=== PATIENT | female | born 1985 | race Two or more races ===

== ENCOUNTER 2017-07-01 16:47 | Emergency (ER) | payer OTHER ==
[~2017-07-01] VITALS: Ht 162.6 cm; Wt 77.1 kg
[2017-07-01 16:44] VITALS: BP 93/52
--- NOTE | 2017-07-01 17:07 | Emergency Room Report ---
History of Present Illness General Chief Complaint: Alcohol Intoxication Source: Patient Present Illness HPI 32 y/o female BIB ambulance c/o ETOH intoxication. States that she was drinking beer with her friend and got too drunk and passed out. Patient states she feels fine now that she is sober and would like to go home. States she smoked PCP 1 week ago and that she lives in a [facility]ci. Patient has no physical complaints. Denies any current n/v/f/c/d, abd pain, back pain, neck pain, photophobia, phonophobia, CP, SOB or headache. Allergies: Coded Allergies: No Known Allergies (Unverified , 07/01/17) Patient History Limited by: medical condition Last Menstrual Period: last month Now: No Reviewed Nursing Documentation: PMH: Agreed, PSxH: Agreed Nursing Documentation-PMH Past Medical History: No History, Except For Review of Systems All Other Systems: negative except mentioned in HPI Physical Exam Vital Signs Date Time Temp Pulse Resp B/P (MAP) Pulse Ox O2 Delivery O2 Flow Rate FiO2 07/01/17 16:37 97.7 94 18 93/52 98 Room Air Sp02 EP Interpretation: reviewed, normal General Appearance: no apparent distress, alert, GCS 15, non-toxic, other - appears intoxicated and smells of alcohol Head: normocephalic, atraumatic Eyes: bilateral eye normal inspection, bilateral eye PERRL ENT: hearing grossly normal, normal pharynx, no angioedema, normal voice Neck: full range of motion, supple/symm/no masses Respiratory: chest non-tender, lungs clear, normal breath sounds, speaking full sentences Cardiovascular #1: regular rate, rhythm, no edema Gastrointestinal: normal bowel sounds, non tender, soft, non-distended, no guarding, no rebound Neurologic: other - intoxicated Skin: normal color, no rash, warm/dry, well hydrated Medical Decision Making PA Attestation Dr. Peng my supervising physician with whom patient management has been discussed with. Diagnostic Impression: Primary Impression: Acute alcoholic intoxication Qualified Codes: F10.929 - Alcohol use, unspecified with intoxication, unspecified ER Course Pt. presents to the ED c/o intoxication Ddx considered but are not limited to illicit drug use, drug over dose, seizure , ICH, CVA, ETOH intoxication, cerebral tumor, hematic coma Vital signs: are WNL, pt. is afebrile H&PE are most consistent with ETOH intoxication ORDERS / ED INTERVENTIONS: My Orders - TIP FUNES Procedure Category Date Status Time Vital Signs CARE 07/01/17 Transmitted 16:49 Iv Access / Saline CARE 07/01/17 Transmitted Lock 16:49 Cbc W/ Differential LAB 07/01/17 Complete 16:49 Ns 1000ml (Sodium PHA 07/01/17 Complete Chloride 1000ml Bag) 16:49 Saline 10ml Flush PHA 07/01/17 Complete (Saline 10ml Flush) 17:00 Alcohol Blood/Serum LAB 07/01/17 Complete 16:49 CMP LAB 07/01/17 Complete 16:49 Vitamin B1 Level LAB 07/01/17 In Process 16:49 Drug Screen Urine LAB 07/01/17 Complete 16:56 Ns 1000ml (Sodium PHA 07/01/17 Complete Chloride 1000ml Bag) 20:00 DISCHARGE: Patient woke up stating she felt fine and has no physical complaints. Patient is asking for a sandwich and orange juice and wants to go home so she can make sure she gets into the care home before they close. At this time pt. is stable for d/c to home. Will provide printed patient care instructions, and any necessary prescriptions. Care plan and follow up instructions have been discussed with the patient prior to discharge. Laboratory Tests Test 07/01/17 17:15 White Blood Count 9.0 K/UL (4.8-10.8) Red Blood Count 3.81 M/UL (4.20-5.40) L Hemoglobin 11.5 G/DL (12.0-16.0) L Hematocrit 35.6 % (37.0-47.0) L Mean Corpuscular Volume 94 FL (80-99) Mean Corpuscular Hemoglobin 30.2 PG (27.0-31.0) Mean Corpuscular Hemoglobin Concent 32.3 G/DL (32.0-36.0) Red Cell Distribution Width 15.4 % (11.6-14.8) H Platelet Count 335 K/UL (150-450) Mean Platelet Volume 5.2 FL (6.5-10.1) L Neutrophils (%) (Auto) 64.3 % (45.0-75.0) Lymphocytes (%) (Auto) 25.4 % (20.0-45.0) Monocytes (%) (Auto) 8.5 % (1.0-10.0) Eosinophils (%) (Auto) 1.3 % (0.0-3.0) Basophils (%) (Auto) 0.5 % (0.0-2.0) Sodium Level 143 mEQ/L (135-145) Potassium Level 3.4 mEQ/L (3.4-4.9) Chloride Level 105 mEQ/L (98-107) Carbon Dioxide Level 24 mEQ/L (20-30) Anion Gap 14 (5-15) Blood Urea Nitrogen 5 mg/dL (7-23) L Creatinine 0.8 mg/dL (0.5-0.9) Estimate Glomerular Filtration Rate > 60 mL/min (>60) Glucose Level 95 mg/dL (74-106) Calcium Level 8.0 mg/dL (8.6-10.2) L Total Bilirubin < 0.2 mg/dL (0.0-1.2) Aspartate Amino Transferase (AST) 16 U/L (5-40) Alanine Aminotransferase (ALT) 11 U/L (3-33) Alkaline Phosphatase 102 U/L (35-104) Total Protein 6.9 g/dL (6.6-8.7) Albumin 4.1 g/dL (3.5-5.2) Globulin 2.8 g/dL Albumin/Globulin Ratio 1.4 (1.0-2.7) Vitamin B1 Level Pending Urine Opiates Screen Negative (NEGATIVE) Urine Barbiturates Screen Negative (NEGATIVE) Phencyclidine (PCP) Screen Positive (NEGATIVE) H Urine Amphetamines Screen Negative (NEGATIVE) Urine Benzodiazepines Screen Negative (NEGATIVE) Urine Cocaine Screen Negative (NEGATIVE) Urine Marijuana (THC) Screen Negative (NEGATIVE) Serum Alcohol 346 mg/dL Last Vital Signs Date Time Temp Pulse Resp B/P (MAP) Pulse Ox O2 Delivery O2 Flow Rate FiO2 07/01/17 20:30 93 14 91/70 100 Room Air 07/01/17 16:44 97.7 Status: improved Disposition: HOME, SELF-CARE Patient Instructions: Alcohol Abuse and Nutrition, Alcohol Intoxication Additional Instructions: Patient instructed to stay well hydrated and to use a liquid diet and then progress to soft bland diet as tolerated before reverting back to a regular diet. Patient Education was given to the patient. Patient advised if irreretractible abd pain, rectal bleeding, or no BM to go to ER immediately. TIP FUNES Jul 01, 2017 17:07
[2017-07-01 17:38] LABS: BASOPHILS % (AUTO) 0.5 % (0.0-2.0); EOSINOPHILS % (AUTO) 1.3 % (0.0-3.0); LYMPHOCYTES % (AUTO) 25.4 % (20.0-45.0); MEAN CORPUSCULAR HEMOGLOBIN 30.2 PG (27.0-31.0); MEAN CORPUSCULAR HGB CONC 32.3 G/DL (32.0-36.0); MEAN CORPUSCULAR VOLUME 94 FL (80-99); MEAN PLATELET VOLUME 5.2 FL (6.5-10.1); MONOCYTES % (AUTO) 8.5 % (1.0-10.0); NEUTROPHILS % (AUTO) 64.3 % (45.0-75.0); PLATELET COUNT 335 K/UL (150-450); RED BLOOD COUNT 3.81 M/UL (4.20-5.40); RED CELL DISTRIBUTION WIDTH 15.4 % (11.6-14.8)
[2017-07-01 17:53] LABS: ALANINE AMINOTRANSFERASE 11 U/L (3-33); ALBUMIN/GLOBULIN RATIO 1.4 (1.0-2.7); ALCOHOL 346 mg/dL; ANION GAP 14 (5-15); ASPARTATE AMINO TRANSFERASE 16 U/L (5-40); CARBON DIOXIDE 24 mEQ/L (20-30); CHLORIDE 105 mEQ/L (98-107); CREATININE 0.8 mg/dL (0.5-0.9); GLOMERULAR FILTRATION RATE > 60 mL/min (>60); HEMOLYSIS 3; POTASSIUM 3.4 mEQ/L (3.4-4.9); SODIUM 143 mEQ/L (135-145); TOTAL PROTEIN 6.9 g/dL (6.6-8.7)
[2017-07-01 18:00] VITALS: BP 99/53
[2017-07-01 20:30] VITALS: BP 91/70
[2017-07-01 21:18] VITALS: BP 91/70
== END 2017-07-01 21:20 | disposition home or self-care (01) ==
LOC: EDBD 16:47 → EMR 17:51
DX: F10.929 Alcohol use, unspecified with intoxication, unspecified (principal)
CPT/HCPCS: 36415; 80053; 80300; 80329; 84425; 85025; 96374; 96375; 99284